=== PATIENT | female | born 1985 | race Caucasian/White ===

== ENCOUNTER 2017-05-20 12:01 | Outpatient (CLI) | payer OTHER ==
--- NOTE | 2017-05-20 14:06 | DIAGNOSTIC IMAGING REPORT ---
PROCEDURE: XR FOOT 3 VIEWS - RIGHT INDICATION: FOOT PAIN TECHNIQUE: Three views. COMPARISON: None. FINDINGS: The minimally distracted 7 mm cortical impaction fracture of the medial aspect of the right first metatarsal head. The rest of the osseous structures and joint spaces are normal. IMPRESSION: 1. Mildly distracted cortical fracture of the medial right first metatarsal head. 2. Findings called to LESLEY Rojas.
== END 2017-05-20 23:00 ==
LOC: XR SRH 12:01
DX: S92.311A Displaced fracture of first metatarsal bone, right foot, initial encounter for closed fracture (principal)